=== PATIENT | male | born 1965 | race Caucasian/White ===

== ENCOUNTER 2019-10-02 11:15 | Emergency (ER) | payer BC ==
[2019-10-02] MEDS ORDERED: Sodium Chloride 0.9% 2.5 ML Syringe FLUSH PRN (11:35)
[2019-10-02] MEDS ORDERED: Sodium Chloride 0.9% 10 ML Syringe FLUSH PRN (11:35)
--- NOTE | 2019-10-02 11:35 | EDM.PDOC ---
ED HPI GENERAL MEDICAL PROBLEM - General Chief Complaint: General Stated Complaint: COLD Time Seen by Provider: 10/02/19 11:18 Source of Information: Reports: Patient History Limitations: Reports: No Limitations - History of Present Illness INITIAL COMMENTS - FREE TEXT/NARRATIVE: HISTORY AND PHYSICAL: History of present illness: Patient is a 54-year-old male who presents to the emergency room today with complaints of cough and chest tightness x2 weeks. He states that he is coughing up foul-smelling sputum. States he has had pneumonia in the past and is concerned if his respiratory symptoms are left untreated he could have pneumonia again. Patient states he just had a occupational health evaluation and at that time "everything was fine". He states that he did have borderline hypertension but states that he was not needing any form of treatment but was told to keep an eye on it. Patient denies any fever, chills, headache, change in vision, syncope or near syncope. Denies any chest pain, back pain. Denies any abdominal pain, nausea, vomiting, diarrhea, constipation or dysuria. Patient has been eating and drinking appropriately. Review of systems: As per history of present illness and below otherwise all systems reviewed and negative. Past medical history: As per history of present illness and as reviewed below otherwise noncontributory. Surgical history: As per history of present illness and as reviewed below otherwise noncontributory. Social history: See social history for further information Family history: As per history of present illness and as reviewed below otherwise noncontributory. Physical exam: General: Well-developed and well-nourished 54-year-old male. Alert and oriented. Nontoxic-appearing and in no acute distress. HEENT: Atraumatic, normocephalic, pupils equal and reactive bilaterally, negative for conjunctival pallor or scleral icterus, mucous membranes moist, TMs normal bilaterally, throat clear, neck supple, nontender, trachea midline. No drooling or trismus noted. No meningeal signs. No hot potato voice noted. Lungs: Poor air exchange and diminished throughout, breath sounds equal bilaterally, chest nontender. Heart: S1S2, regular rate and rhythm without overt murmur Abdomen: Soft, nondistended, nontender. Negative for masses or hepatosplenomegaly. Negative for costovertebral tenderness. Skin: Intact, warm, dry. No lesions or rashes noted. Extremities: Atraumatic, moves all extremities per self without difficulty or deficits, negative for cords or calf pain. Neurovascular unremarkable. Neuro: Awake, alert, oriented. Cranial nerves II through XII unremarkable. Cerebellum unremarkable. Motor and sensory unremarkable throughout. Exam nonfocal. Notes: With the recent COVID-19 outbreak patient has been screened: patient denies any recent travel to high risk areas or exposure to anyone who recently tested or is begin tested for COVID-19. Patient is at low/moderate risk (because absent fever and no travel). With his influenza and chest x-ray reading is normal we did discuss testing for this (upper respiratory illness without definitive cause ). He declines wanting any testing even though it was offered. Not much lung improvement after the DuoNeb. Patient does have a leukocytosis which I am going to treat as an atypical pneumonia. I did request that we admit him for further care and management as his blood pressure is currently not under control. He is refusing any further medications (refused IV labetolol ) and would like to be discharged to home. We discussed in great lengths the risks of uncontrolled hypertension including but not limited to heart attack, stroke and even . He is aware of these risks and still would like to be discharged. I am going to give him prescriptions for home and we reviewed and discussed signs and symptoms that would prompt him to return to the emergency room. Diagnostics: CBC, CMP, Troponin, EKG, CXR, Influneza, Strep Therapeutics: IV fluids, Duo Neb, Rocephin, Clonidine, Solu-Medrol Prescription: Zpak Medrol Dosepak Pro-Air Inhaler Lisinopril Impression: Atypical pneumonia Uncontrolled hypertension Left against medical advice Plan: 1. Unmanaged blood pressure puts you at increased risk for heart attack and stroke. Your blood pressure is dangerously high. DO NOT take any over the counter cough and cold mediations as these can increase your blood pressure even more. I would like you to monitor your blood pressure routinely and be re- evaluated by your primary care provider as your medication may need to be adjusted. 2. If your symptoms do not improve, new symptoms develop, or current symptoms worsen- RETURN to the Emergency Room. 3. Alternate Tylenol and Ibuprofen as needed. 4. Follow up with primary care next week. Return to the ED as needed as discussed. Definitive disposition and diagnosis as appropriate pending reevaluation and review of above. - Related Data Allergies Allergy/AdvReac Type Severity Reaction Status Date / Time No Known Allergies Allergy Verified 10/02/19 11:26 Home Meds: Home Meds Albuterol Sulfate [Proair Hfa] 2 puff IH Q4HR #1 hfa.aer.ad 10/02/19 [Rx] Azithromycin [Zithromax] 1 dose PO DAILY 5 Days #6 tab 10/02/19 [Rx] lisinopriL [Lisinopril] 10 mg PO DAILY #30 tablet 10/02/19 [Rx] methylPREDNISolone [Medrol] 1 dose PO DAILY 6 Days #1 dospk 10/02/19 [Rx] Past Medical History - Past Health History Medical/Surgical History: Denies Medical/Surgical History Social & Family History - Family History Family Medical History: Noncontributory - Tobacco Use Smoking Status *Q: Never Smoker - Recreational Drug Use Recreational Drug Use: No ED ROS GENERAL - Review of Systems Review Of Systems: Comprehensive ROS is negative, except as noted in HPI. ED EXAM, GENERAL - Physical Exam Exam: See Below (See dictation) Course - Vital Signs Last Recorded V/S: Last Vital Signs Temp 97.8 F 10/02/19 13:24 Pulse 90 10/02/19 13:24 Resp 18 10/02/19 13:24 BP 179/104 H 10/02/19 13:24 Pulse Ox 94 L 10/02/19 13:24 - Orders/Labs/Meds Orders: Active Orders 24 hr Category Date Time Status EKG Documentation Completion [RC] STAT Care 10/02/19 11:35 Active RT Aerosol Therapy [RC] ASDIRECTED Care 10/02/19 11:41 Active CULTURE STREP A CONFIRMATION [RM] Stat Lab 10/02/19 11:32 Results STREP SCRN A RAPID W CULT CONF [RM] Stat Lab 10/02/19 11:32 Results Isolation [COMM] Routine Oth 10/02/19 11:32 Active Saline Lock Insert [OM.PC] Stat Oth 10/02/19 11:35 Ordered Labs: Laboratory Tests 10/02/19 10/02/19 Range/Units 11:55 11:55 WBC 13.16 H (4.0-11.0) K/uL RBC 5.13 (4.50-5.90) M/uL Hgb 15.7 (13.0-17.0) g/dL Hct 45.5 (38.0-50.0) % MCV 88.7 (80.0-98.0) fL MCH 30.6 (27.0-32.0) pg MCHC 34.5 (31.0-37.0) g/dL RDW Std Deviation 42.3 (28.0-62.0) fl RDW Coeff of Kartik 13 (11.0-15.0) % Plt Count 258 (150-400) K/uL MPV 9.30 (7.40-12.00) fL Neut % (Auto) 74.9 (48.0-80.0) % Lymph % (Auto) 16.0 (16.0-40.0) % Blaine % (Auto) 6.8 (0.0-15.0) % Eos % (Auto) 2.1 (0.0-7.0) % Baso % (Auto) 0.2 (0.0-1.5) % Neut # (Auto) 9.9 H (1.4-5.7) K/uL Lymph # (Auto) 2.1 (0.6-2.4) K/uL Blaine # (Auto) 0.9 H (0.0-0.8) K/uL Eos # (Auto) 0.3 (0.0-0.7) K/uL Baso # (Auto) 0.0 (0.0-0.1) K/uL Nucleated RBC % 0.0 /100WBC Nucleated RBCs # 0 K/uL Sodium 139 (136-148) mmol/L Potassium 4.2 (3.5-5.1) mmol/L Chloride 102 (98-107) mmol/L Carbon Dioxide 26.9 (21.0-32.0) mmol/L BUN 10 (7.0-18.0) mg/dL Creatinine 0.9 (0.8-1.3) mg/dL Est Cr Clr Drug Dosing 110.36 mL/min Estimated GFR (MDRD) > 60.0 ml/min Glucose 340 H (74-106) mg/dL Calcium 8.7 (8.5-10.1) mg/dL Total Bilirubin 0.7 (0.2-1.0) mg/dL AST 45 H (15-37) IU/L ALT 98 H (14-63) IU/L Alkaline Phosphatase 66 (46-116) U/L Troponin I < 0.050 (0.000-0.056) ng/mL Total Protein 7.5 (6.4-8.2) g/dL Albumin 3.3 L (3.4-5.0) g/dL Globulin 4.2 H (2.6-4.0) g/dL Albumin/Globulin Ratio 0.8 L (0.9-1.6) Meds: Medications Discontinued Medications Generic Name Dose Route Start Last Admin Trade Name Freq PRN Reason Stop Dose Admin Albuterol/Ipratropium 3 ml 10/02/19 11:41 10/02/19 11:49 Duoneb 3.0-0.5 Mg/3 Ml NEB 10/02/19 11:42 3 ml ONETIME ONE Administration Clonidine HCl 0.1 mg 10/02/19 12:26 10/02/19 12:33 Catapres PO 10/02/19 12:27 0.1 mg ONETIME ONE Administration Ceftriaxone Sodium/Dextrose 1 50 mls @ 100 mls/hr 10/02/19 12:25 10/02/19 12: 33 gm/ Premix IV 10/02/19 12:54 100 mls/hr ONETIME ONE Administration Methylprednisolone Sodium Succinate 125 mg 10/02/19 12:25 10/02/19 12:33 Solu-Medrol IVPUSH 10/02/19 12:26 125 mg ONETIME ONE Administration Sodium Chloride 10 ml 10/02/19 11:35 10/02/19 12:00 Saline Flush FLUSH 10 ml ASDIRECTED PRN Administration Keep Vein Open Sodium Chloride 2.5 ml 10/02/19 11:35 10/02/19 12:00 Saline Flush FLUSH 2.5 ml ASDIRECTED PRN Administration Keep Vein Open Departure - Departure Time of Disposition: 12:50 Disposition: Home, Self-Care 01 Clinical Impression: Left against medical advice, Uncontrolled hypertension, Atypical pneumonia - Discharge Information Prescriptions: Albuterol Sulfate [Proair Hfa] 2 puff IH Q4HR #1 hfa.aer.ad Azithromycin [Zithromax] 1 dose PO DAILY 5 Days #6 tab lisinopriL [Lisinopril] 10 mg PO DAILY #30 tablet methylPREDNISolone [Medrol] 1 dose PO DAILY 6 Days #1 dospk Instructions: Hypertension, [id number], Community-Acquired Pneumonia, Adult, [id number] Referrals: PCP,None [Primary Care Provider] - Forms: ED Department Discharge Additional Instructions: The following information is given to patients seen in the emergency department who are being discharged to home. This information is to outline your options for follow-up care. We provide all patients seen in our emergency department with a follow-up referral. The need for follow-up, as well as the timing and circumstances, are variable depending upon the specifics of your emergency department visit. If you don't have a primary care physician on staff, we will provide you with a referral. We always advise you to contact your personal physician following an emergency department visit to inform them of the circumstance of the visit and for follow-up with them and/or the need for any referrals to a consulting specialist. The emergency department will also refer you to a specialist when appropriate. This referral assures that you have the opportunity for follow-up care with a specialist. All of these measure are taken in an effort to provide you with optimal care, which includes your follow-up. Under all circumstances we always encourage you to contact your private physician who remains a resource for coordinating your care. When calling for follow-up care, please make the office aware that this follow-up is from your recent emergency room visit. If for any reason you are refused follow-up, please contact the [facility] Emergency Department at and asked to speak to the emergency department charge nurse. [facility] [address] [place] [address] [id number] [address] [id number] 1. Unmanaged blood pressure puts you at increased risk for heart attack and stroke. Your blood pressure is dangerously high. DO NOT take any over the counter cough and cold mediations as these can increase your blood pressure even more. I would like you to monitor your blood pressure routinely and be re- evaluated by your primary care provider as your medication may need to be adjusted. 2. If your symptoms do not improve, new symptoms develop, or current symptoms worsen- RETURN to the Emergency Room. 3. Alternate Tylenol and Ibuprofen as needed. 4. Follow up with primary care next week. Return to the ED as needed as discussed. Sepsis Event Note - Evaluation Sepsis Screening Result: No Definite Risk - Focused Exam Vital Signs: Vital Signs Temp Temp Pulse Resp BP BP Pulse Ox 10/02/19 13:24 97.8 F 90 18 179/104 H 94 L 10/02/19 12:33 198/118 H 10/02/19 12:23 98 18 198/118 H 94 L 10/02/19 12:22 97.8 F 111 H 21 H 201/125 H 94 L 10/02/19 12:05 98.3 F 100 17 182/111 H 94 L 10/02/19 11:38 90 190/118 H 93 L 10/02/19 11:23 96.3 F L 95 18 189/120 H 94 L Date Exam was Performed: 10/02/19 Time Exam was Performed: 17:36 - My Orders Last 24 Hours: My Active Orders 10/02/19 11:32 CULTURE STREP A CONFIRMATION [RM] Stat STREP SCRN A RAPID W CULT CONF [RM] Stat Isolation [COMM] Routine 10/02/19 11:35 EKG Documentation Completion [RC] STAT Saline Lock Insert [OM.PC] Stat 10/02/19 11:41 RT Aerosol Therapy [RC] ASDIRECTED - Assessment/Plan Last 24 Hours: My Active Orders 10/02/19 11:32 CULTURE STREP A CONFIRMATION [RM] Stat STREP SCRN A RAPID W CULT CONF [RM] Stat Isolation [COMM] Routine 10/02/19 11:35 EKG Documentation Completion [RC] STAT Saline Lock Insert [OM.PC] Stat 10/02/19 11:41 RT Aerosol Therapy [RC] ASDIRECTED
[2019-10-02] MEDS ORDERED: Albuterol/Ipratropium 3.0-0.5 MG/3 ML Neb Soln NEB ONE (11:41)
--- NOTE | 2019-10-02 11:58 | CR ---
Chest: 2 views of the chest were obtained. Comparison: No prior chest imaging is available. Heart size and mediastinum are normal. Lungs are clear with no acute parenchymal change. Slight scoliosis and degenerative change is noted within the spine. Impression: 1. Nothing acute is appreciated on 2 view chest x-ray. Diagnostic code #2 This report was dictated in MDT
[2019-10-02] MEDS ORDERED: cefTRIAXone 1 GM in Premix Bag 1 BAG IV ONE (12:25)
[2019-10-02] MEDS ORDERED: methylPREDNISolone Sodium Succinate 125 MG/2 ML SDV IVPUSH ONE (12:25)
[2019-10-02] MEDS ORDERED: cloNIDine 0.1 MG Tab PO ONE (12:26)
[2019-10-02 12:40] LABS: BLOOD UREA NITROGEN,BUN 10 mg/dL (7.0-18.0); CARBON DIOXIDE,CO2 26.9 mmol/L (21.0-32.0); CHLORIDE,CL 102 mmol/L (98-107); GLUCOSE RANDOM 340 mg/dL (74-106); POTASSIUM,K 4.2 mmol/L (3.5-5.1); SODIUM,NA 139 mmol/L (136-148)
== END 2019-10-02 13:25 | disposition home or self-care (01) ==
LOC: MW.ED 11:15
DX: J18.9 Pneumonia, unspecified organism (principal); I10 Essential (primary) hypertension; Z53.20 Procedure and treatment not carried out because of patient's decision for unspecified reasons; Z79.899 Other long term (current) drug therapy
CPT/HCPCS: 36415; 71046; 80053; 84484; 85025; 87081; 87804; 87880; 93005; 94640; 96365; 96375; 99284; A9270; J0696; J2930; J7620-GY